=== PATIENT | male | born 1985 ===

== ENCOUNTER 2020-06-28 15:55 | Inpatient (IN) | payer MEDICARE ==
[~2020-06-28] VITALS: Ht 190.5 cm; Wt 150.0 kg
[2020-06-28 18:02] VITALS: BP 112/61
[2020-06-28 18:22] LABS: BASOPHILS 0.3 % (0-2); EOSINOPHILS 1.2 % (0-7); HEMATOCRIT 47.4 % (42.0-54.0); HEMOGLOBIN 15.9 g/dL (13.5-17.5); IMMATURE GRANULOCYTES 0.3 % (0-5); MCH 28.9 pg (26.0-34.0); MCHC 33.5 g/dL (31.0-37.0); MCV 86.2 fL (80.0-100.0); MEAN PLATELET VOLUME 10.8 fL (7.4-10.4); MONOCYTES 10.7 % (2-11); NEUTROPHILS 68.5 % (40-80); PLATELET COUNT 213 10x3/uL (130-400); RDW 12.5 % (11.5-14.5)
[2020-06-28 18:30] LABS: PROTIME 13.1 SECONDS (11.6-15.0)
[2020-06-28 18:47] LABS: CALC OSMOLALITY 267 mosm/kg (275-300); CALCIUM 9.2 mg/dL (8.5-10.1); CARBON DIOXIDE 27.1 mmol/L (21.0-32.0); CHLORIDE - SERUM 100 mmol/L (98-107); CREATININE - SERUM 0.8 mg/dL (0.6-1.3); GLUCOSE 92 mg/dL (74-106); POTASSIUM - SERUM 4.4 mmol/L (3.5-5.1); SODIUM 135 mmol/L (136-145); UREA NITROGEN 8 mg/dL (7-18); eGFR NON AFRICAN AMERICAN > 90 mL/min (90-120)
[2020-06-28 18:57] LABS: ALBUMIN 3.9 g/dL (3.4-5.0); ALKALINE PHOSPHATASE 110 U/L (30-120); ALT (SGPT) 67 U/L (10-68); BILIRUBIN - TOTAL 0.33 mg/dL (0.2-1.3); PROTEIN - SERUM 7.4 g/dL (6.4-8.2)
--- NOTE | 2020-06-28 21:20 | NUR ---
LACTATED RINGERS INFUSING AT 700 ML/H WITH 100 ML REMAINING.
--- NOTE | 2020-06-28 21:26 | NUR ---
REC'D PATIENT TO FLOOR FROM ER. NO S/S OF DISTRESS. COMPLETED ADMISSION. GAVE PATIENT SANDWICH TRAY AND DRINK PER HIS REQUEST. IV INFUSING TO RIGHT HAND WITH NS @ 75 PER ORDERS. PATIENT DENIES OTHER NEEDS AT THIS TIME. BED IN LOWEST POSITION AND CALL LIGHT WITHIN REACH. ENCOURAGED THE PATIENT TO CALL IF HE HAS NEEDS. WILL CONTINUE TO MONITOR.
[2020-06-28 21:31] VITALS: BP 123/66; Ht 190.5 cm; Wt 150.0 kg
[2020-06-29] VITALS: BP 123/66
[2020-06-29 04:00] VITALS: BP 120/67
[2020-06-29 08:36] VITALS: BP 127/76
[2020-06-29 12:39] VITALS: BP 128/74
[2020-06-29 17:20] VITALS: BP 105/51
[2020-06-29 20:00] VITALS: BP 154/84
--- NOTE | 2020-06-29 20:56 | NUR ---
PT ALERT AND ORIENTED. NO SIGNS OF DISTRESS. BREATHING EVEN AND UNLABORED. DR ORDER TO D/C FLUIDS. GIVEN PAIN MEDICATION FOR RT LEG PAIN. PT STATES HE IS FROM A [facility]. AND EVERYTIME HE COMES TO THE HOSPITAL HE IS TRANSFERED TO A MENTAL HOSPITAL FOR CARE. PT STATES ADHD, BIPOLAR, AND SCHIZOPHRENIA WHICH HE DOES TAKE MEDICATION FOR BUT DOES NOT REMEMBER THE NAME OF THE MEDICATIONS. WILL CALL THE [facility] TO SEE IF WE CAN GET UPDATED MEDS
[2020-06-30] VITALS: BP 119/73
--- NOTE | 2020-06-30 01:19 | NUR ---
ATTEMPTED TO CALL [facility] WHERE PT IS FROM FOR MED LIST. NO ANSWER AT THIS TIME. WILL TRY AGAIN LATER.
--- NOTE | 2020-06-30 02:21 | NUR ---
I have reviewed this patient and I concur with the Shift Assessment completed by the Licensed Practical Nurse today this shift.
[2020-06-30 04:00] VITALS: BP 112/78
[2020-06-30 06:45] LABS: CALC OSMOLALITY 268 mosm/kg (275-300); CALCIUM 8.3 mg/dL (8.5-10.1); CARBON DIOXIDE 26.1 mmol/L (21.0-32.0); CHLORIDE - SERUM 100 mmol/L (98-107); GLUCOSE 93 mg/dL (74-106); SODIUM 135 mmol/L (136-145); UREA NITROGEN 9 mg/dL (7-18); eGFR NON AFRICAN AMERICAN > 90 mL/min (90-120)
[2020-06-30 06:46] LABS: POTASSIUM - SERUM 3.4 mmol/L (3.5-5.1)
[2020-06-30 07:19] LABS: BASOPHILS 0.3 % (0-2); EOSINOPHILS 3.6 % (0-7); HEMATOCRIT 44.1 % (42.0-54.0); HEMOGLOBIN 14.8 g/dL (13.5-17.5); IMMATURE GRANULOCYTES 0.3 % (0-5); LYMPHOCYTES 25.4 % (15-50); MCH 28.7 pg (26.0-34.0); MCHC 33.6 g/dL (31.0-37.0); MCV 85.5 fL (80.0-100.0); MEAN PLATELET VOLUME 11.4 fL (7.4-10.4); MONOCYTES 10.9 % (2-11); NEUTROPHILS 59.5 % (40-80); PLATELET COUNT 196 10x3/uL (130-400); RBC 5.16 10x6/uL (4.20-6.10); RDW 12.8 % (11.5-14.5); WBC 12.8 10x3/uL (4.8-10.8)
--- NOTE | 2020-06-30 08:04 | NUR ---
PT WAS WALKING THE [facility] THIS MORNING AND COMPLAINING ABOUT HIS TREATMENT. HE SAID,"AIN'T NOBODY DOIN' NOTHIN' ABOUT THIS THING ON MY LEG!" SEVERAL ATTEMPTS WERE MADE TO EXPLAIN HIS TREATMENT PLAN BUT PT SHOWED NO EVIDENCE OF UNDERSTANDING. HE WAS SEEN BY STAFF MEMBERS LEAVING THE FLOOR AND FOUND A FEW MINUTES LATER IN THE ADMINISTRATION OFFICE. PT SAID HE WAS WAITING ON [facility] TO ARRIVE. THE SECERITARY WAS INFORMED OF THE PATIENTS ROOM AND ASKED TO PLEASE BRING HIM BACK TO HIS ROOM AFTER SPEAKING WITH [facility]. PT STILL HAS PIV IN RIGHT HAND.
--- NOTE | 2020-06-30 08:18 | NUR ---
PT SEEN WALKING BACK TO HIS ROOM. HE IS STANDING IN HIS DOORWAY ARGUING WITH STAFF. SEVERAL ATTEMPTS HAVE BEEN MADE TO CONTACT HIS [facility] TO GET A LIST OF HIS PSYCH MEDS HE SHOULD BE TAKING. MESSAGES LEFT. STILL WAITING FOR RESPONSE
--- NOTE | 2020-06-30 09:13 | NUR ---
PT VERY AGGITATED, GETTING LOUD AND CURSING AT STAFF. HE WANTS HIS WOUND TO BE CULTURED BUT REFUSES TO WAIT TO SPEAK TO A PHYSICIAN ABOUT IT. SAID HE WANTS TO LEAVE AND GO TO ANOTHER HOSPITAL. HE HAS BEEN MAKING PHONE CALLS FROM HIS ROOM PHONE TO HIS FUELS ENGINEER AT HIS PRISON, JESSICA. HE SAID THAT JESSICA IS ON HIS WAY TO PICK HIM UP AND WILL BE HERE IN 30MIN. HE HAS REFUSED TO ALLOW ANYONE TO CLEAN AND DRESS HIS WOUND ON HIS LEG. IT HAS BEEN DRAINING AND DRIPPING DOWN HIS LEG WHILE HE HAS BEEN WALKING AROUND THE HALLS AND HE KEEPS SQUEESING IT AND PUSHING ON IT AND MAKING IT OOZE EVEN AFTER BEING REPEATEDLY ASKED NOT TO. HE HAS SIGNED AMA PAPERS AND PIV REMOVED. PIV WAS FULLY INTACT AND PT TOLERATED ITS REMOVAL WELL. HE HAS GONE TO THE FRONT ENTRANCE TO WAIT FOR HIS RIDE TO PICK HIM UP.
== END 2020-06-30 09:09 | disposition left against medical advice (07) | DRG 603 ==
LOC: D.ER 15:55 → D.EDHOLD 20:31 → D.MS 20:31
PROVIDERS: Family Medicine; ADMIT Legal Medicine; ATTEND Legal Medicine
DX: L03.115 Cellulitis of right lower limb (principal); L02.415 Cutaneous abscess of right lower limb; D72.829 Elevated white blood cell count, unspecified; F17.200 Nicotine dependence, unspecified, uncomplicated